=== PATIENT | male | born 1965 | race Hispanic/Latino ===

== ENCOUNTER 2019-05-12 04:11 | Emergency (ER) | payer SELFPAY ==
[2019-05-12 04:49] LABS: Absolute Lymphocytes (CBC) 2.2 K/uL (0.7-4.9); Basophils % 0.7 % (0-1.3); Hematocrit 43.2 % (39.6-49.0); Lymphocytes % 37.1 % (15.3-44.8); MPV 9.1 fL (7.6-11.3)
[2019-05-12 05:01] LABS: ALT/SGPT 69 U/L (12-78); AST/SGOT 27 U/L (15-37); Albumin 3.7 g/dL (3.4-5.0); Alkaline Phosphatase 74 U/L (45-117); BUN Blood Urea Nitrogen 15 mg/dL (7-18); Bicarbonate 27 mmol/L (21-32); Bilirubin Direct 0.1 mg/dL (0-0.2); Bilirubin Total 0.3 mg/dL (0.2-1.0); CKMB Creatine Kinase MB 1.4 ng/mL (0.3-3.6); Creatine Phosphokinase 103 U/L (39-308); Glucose Level 168 mg/dL (74-106); Lipase 76 U/L (73-393); Magnesium 1.8 mg/dL (1.8-2.4); NT PRO-BNP 42 pg/mL (<125); Potassium 3.1 mmol/L (3.5-5.1); Protein, Total 7.6 g/dL (6.4-8.2); Sodium Level 139 mmol/L (136-145); Troponin (Emerg Dept Use Only) < 0.02 ng/mL (0.0-0.045)
[2019-05-12 05:08] LABS: Protime INR 1.02
--- NOTE | 2019-05-12 06:35 | EDPHYS ---
Physician Documentation [facility] Name: Douglas Alvarez Age: 53 yrs Sex: Male : 1965 Arrival Date: 05/12/2019 Time: 04:12 Bed 20 Private MD: ED Physician Albert Emery HPI: 05/11 04:56 This 53 yrs old Male presents to ER via Unassigned with complaints of tw4 Breathing Difficulty. 04:56 The patient has shortness of breath at rest. Onset: The symptoms/episode began/occurred tw4 today. Duration: The symptoms are continuous, and are unchanged since they started. The patient's shortness of breath has no apparent modifying factors. Associated signs and symptoms: The patient has no apparent associated signs or symptoms. Severity of symptoms: At their worst the symptoms were moderate in the emergency department the symptoms are unchanged. The patient has not experienced similar symptoms in the past. Historical: - Allergies: 04:12 No Known Allergies; jb4 - Home Meds: 04:12 None [Active]; jb4 - PMHx: 04:12 None; jb4 - PSHx: 04:12 None; jb4 - Immunization history:: Adult Immunizations up to date. - Social history:: Smoking status: Patient reports the use of cigarette tobacco products, Patient denies any tobacco usage or history of. Patient/guardian denies using alcohol, street drugs. ROS: 04:56 Constitutional: Negative for fever, chills, and weight loss, Eyes: Negative for injury, tw4 pain, redness, and discharge, ENT: Negative for injury, pain, and discharge, Neck: Negative for injury, pain, and swelling, Cardiovascular: Negative for chest pain, palpitations, and edema, Abdomen/GI: Negative for abdominal pain, nausea, vomiting, diarrhea, and constipation, Back: Negative for injury and pain, MS/Extremity: Negative for injury and deformity, Skin: Negative for injury, rash, and discoloration. 04:56 Respiratory: Positive for cough, shortness of breath, Negative for dyspnea on exertion, hemoptysis, orthopnea, pleurisy, sputum production, wheezing. Exam: 04:56 Constitutional: This is a well developed, well nourished patient who is awake, alert, tw4 and in no acute distress. Head/Face: Normocephalic, atraumatic. Chest/axilla: Normal chest wall appearance and motion. Nontender with no deformity. No lesions are appreciated. Cardiovascular: Regular rate and rhythm with a normal S1 and S2. No gallops, murmurs, or rubs. Normal PMI, no JVD. No pulse deficits. Respiratory: Lungs have equal breath sounds bilaterally, clear to auscultation and percussion. No rales, rhonchi or wheezes noted. No increased work of breathing, no retractions or nasal flaring. Abdomen/GI: Soft, non-tender, with normal bowel sounds. No distension or tympany. No guarding or rebound. No evidence of tenderness throughout. Back: No spinal tenderness. No costovertebral tenderness. Full range of motion. MS/ Extremity: Pulses equal, no cyanosis. Neurovascular intact. Full, normal range of motion. Neuro: Awake and alert, GCS 15, oriented to person, place, time, and situation. Cranial nerves II-XII grossly intact. Motor strength 5/5 in all extremities. Sensory grossly intact. Cerebellar exam normal. Normal gait. Vital Signs: 04:12 BP 130 / 93; Pulse 102; Resp 18; Temp 98.5; Pulse Ox 100% on R/A; Weight 99.79 kg (R); jb4 Height 5 ft. 10 in. (177.80 cm); Pain 0/10; 05:45 BP 115 / 90; Pulse 83; Resp 18; Pulse Ox 98% on R/A; jb4 06:19 BP 119 / 86; Pulse 78; Resp 18; Pulse Ox 98% on R/A; Pain 0/10; fu 04:12 Body Mass Index 31.57 (99.79 kg, 177.80 cm) [facility] MDM: 04:30 Patient medically screened. 05/11 04:31 Order name: Blood Culture Adult (2) 05/11 04:31 Order name: BMP; Complete Time: 06:11 05/11 06:11 Interpretation: Normal except: K 3.1; GLUC 168; GFR 86. 05/11 04:31 Order name: CBC with Diff; Complete Time: 06:11 05/11 06:11 Interpretation: Within normal limits. 05/11 04:31 Order name: Ckmb; Complete Time: 06:11 05/11 06:11 Interpretation: Within normal limits: CKMB 1.4. 05/11 04:31 Order name: CPK; Complete Time: 06:11 05/11 06:12 Interpretation: Within normal limits: CPK 103. 05/11 04:31 Order name: D-Dimer; Complete Time: 06:11 05/11 06:12 Interpretation: Within normal limits: D-DIMER 327. 05/11 04:31 Order name: XRAY CXR (1 view) 05/11 04:31 Order name: Hepatic Function; Complete Time: 06:11 05/11 06:11 Interpretation: Normal except: GLOB 3.9; A/G 0.9. 05/11 04:31 Order name: Lipase; Complete Time: 06:11 05/11 06:12 Interpretation: Within normal limits: LIP 76. 05/11 04:31 Order name: Magnesium; Complete Time: 06:11 05/11 06:12 Interpretation: Within normal limits: MG 1.8. 05/11 04:31 Order name: NT PRO-BNP; Complete Time: 06:11 05/11 06:12 Interpretation: Within normal limits: NT PRO-BNP 42. 05/11 04:31 Order name: PT-INR; Complete Time: 06:11 05/11 06:12 Interpretation: Within normal limits: PT 12.0. 05/11 04:31 Order name: Ptt, Activated; Complete Time: 06:11 05/11 06:12 Interpretation: Within normal limits: PTT 29.1. 05/11 04:31 Order name: Troponin (emerg Dept Use Only); Complete Time: 06:11 05/11 06:12 Interpretation: Within normal limits: TROPED < 0.02. 05/11 04:31 Order name: EKG; Complete Time: 04:32 05/11 04:31 Order name: Cardiac monitoring; Complete Time: 05:02 05/11 04:31 Order name: EKG - Nurse/Tech; Complete Time: 05:03 05/11 04:31 Order name: IV Saline Lock; Complete Time: 05:03 05/11 04:31 Order name: Labs collected and sent; Complete Time: 05:03 4 05/11 04:31 Order name: O2 Per Protocol; Complete Time: 05:4 05/11 04:31 Order name: O2 Sat Monitoring; Complete Time: : EC:03 Rate is 90 beats/min. Rhythm is regular. QRS [place] is Normal. HI interval is normal. QRS tw4 interval is normal. QT interval is normal. No Q waves. T waves are Flattened in lead aVL. No ST changes noted. Clinical impression: NSR w/ Non-specific ST/T Changes. Interpreted by me. Administered Medications: No medications were administered Disposition: 05/12/19 06:34 Discharged to Home. Impression: Dyspnea, Cough. - Condition is Stable. - Discharge Instructions: Shortness of Breath, Cough, Adult. - Prescriptions for Tessalon Perles 100 mg Oral Capsule - take 1 capsule by ORAL route every 8 hours As needed; 15 capsule. - Medication Reconciliation Form, Thank You Letter, Antibiotic Education, Prescription Opioid Use form. - Follow up: Private Physician; When: Upon discharge from the Emergency Department; Reason: Recheck today's complaints, Continuance of care, Re-evaluation by your physician. - Problem is new. - Symptoms have improved. Signatures: Dispatcher [employer] EDEstelle Hathaway RN RN Maikel Ledesma RN RN jb4 Albert Emery MD MD tw4 Corrections: (The following items were deleted from the chart) 06:55 06:34 05/12/2019 06:34 Discharged to Home. Impression: Dyspnea; Cough. Condition is bb Stable. Forms are Medication Reconciliation Form, Thank You Letter, Antibiotic Education, Prescription Opioid Use. Follow up: Private Physician; When: Upon discharge from the Emergency Department; Reason: Recheck today's complaints, Continuance of care, Re-evaluation by your physician. Problem is new. Symptoms have improved. tw4
--- NOTE | 2019-05-12 06:35 | ER ---
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 There were a lot of us there and a lot of the guys were coughing and not feeling well. EMS states: PT got back in town 1 week ago from [place]. He is reporting cough, sore throat, and shortness of breath. The cough and soar throat has been going on since he got back, the SOB started tonight. 04:12 Coronavirus screen: Surgical mask placed on patient. Patient moved to private room, jb4 placed in contact and droplet isolation with eye protection until further assessment. Patient reports a cough. Patient reports shortness of breath or difficulty breathing. Patient denies measured and/or subjective temperature greater than 100.4F. Patient reports travel on a cruise ship or to a country the [facility] currently lists as an affected area. Patient denies contact with known and/or suspected case of COVID-19. Ebola Screen: No symptoms or risks identified at this time. Initial Sepsis Screen: Does the patient meet any 2 criteria? HR > 90 bpm. Yes Does the patient have a suspected source of infection? No. Patient's initial sepsis screen is negative. Risk Assessment: Do you want to hurt yourself or someone else? Patient reports no desire to harm self or others. 04:12 Method Of Arrival: EMS: [facility] jb4 04:12 Acuity: FERNY 3 jb4 Triage Assessment: 04:12 Respiratory: Onset: The symptoms/episode began/occurred this morning, the patient has jb4 mild shortness of breath. Historical: - Allergies: 04:12 No Known Allergies; jb4 - Home Meds: 04:12 None [Active]; jb4 - PMHx: 04:12 None; jb4 - PSHx: 04:12 None; jb4 - Immunization history:: Adult Immunizations up to date. - Social history:: Smoking status: Patient reports the use of cigarette tobacco products, Patient denies any tobacco usage or history of. Patient/guardian denies using alcohol, street drugs. Screenin:12 Abuse screen: Denies threats or abuse. Nutritional screening: No deficits noted. jb4 Tuberculosis screening: No symptoms or risk factors identified. Fall Risk None identified. Assessment: 04:12 General: Appears in no apparent distress. uncomfortable, Behavior is calm, cooperative, jb4 appropriate for age. Pain: Denies pain. Neuro: Level of Consciousness is awake, alert, obeys commands, Oriented to person, place, time, situation. Cardiovascular: Patient's skin is warm and dry. Rhythm is sinus rhythm. Respiratory: Reports shortness of breath at rest Airway is patent Respiratory effort is even, unlabored, Breath sounds are clear. GI: No signs and/or symptoms were reported involving the gastrointestinal system. : No signs and/or symptoms were reported regarding the genitourinary system. EENT: No signs and/or symptoms were reported regarding the EENT system. Derm: Skin is intact, Skin is pink, warm \T\ dry. Musculoskeletal: Circulation, motion, and sensation intact. Range of motion: intact in all extremities. 05:30 Reassessment: Patient appears in no apparent distress at this time. Patient and/or jb4 family updated on plan of care and expected duration. Pain level reassessed. Patient is alert, oriented x 3, equal unlabored respirations, skin warm/dry/pink. 06:23 Reassessment: Patient appears in no apparent distress at this time. Patient and/or fu family updated on plan of care and expected duration. Pain level reassessed. Patient is alert, oriented x 3, equal unlabored respirations, skin warm/dry/pink. Patient cleared from droplet precautions as per Dr. Emery. 06:55 Reassessment: Patient appears in no apparent distress at this time. Patient and/or jb4 family updated on plan of care and expected duration. Pain level reassessed. Patient is alert, oriented x 3, equal unlabored respirations, skin warm/dry/pink. PT verbalized understanding of d/c and follow up instructions, denies questions or concerns. Ambulated out of Ed with steady gait. Vital Signs: 04:12 BP 130 / 93; Pulse 102; Resp 18; Temp 98.5; Pulse Ox 100% on R/A; Weight 99.79 kg (R); jb4 Height 5 ft. 10 in. (177.80 cm); Pain 0/10; 05:45 BP 115 / 90; Pulse 83; Resp 18; Pulse Ox 98% on R/A; jb4 06:19 BP 119 / 86; Pulse 78; Resp 18; Pulse Ox 98% on R/A; Pain 0/10; fu 04:12 Body Mass Index 31.57 (99.79 kg, 177.80 cm) jb4 ED Course: 04:12 Patient arrived in ED. cl3 04:12 Arm band placed on right wrist. jb4 04:12 Patient has correct armband on for positive identification. Bed in low position. Call [facility] light in reach. Side rails up X 1. packing machine can feeder on. Pulse ox on. NIBP on. 04:30 Albert Emery MD is Attending Physician. tw4 04:30 Initial lab(s) drawn, by ma, sent to lab. Inserted saline lock: 20 gauge in right [facility] antecubital area, using aseptic technique. Blood collected. 04:40 First set of blood cultures drawn by me. jb4 04:53 Maikel Barnhart, RN is Primary Nurse. jb4 04:55 Second set of blood cultures drawn by ma, EKG done, by ED staff, reviewed by Albert Emery MD. 04:58 Triage completed. jb4 05:16 XRAY CXR (1 view) In Process Unspecified. EDWA 06:55 No provider procedures requiring assistance completed. IV discontinued, intact, jb4 bleeding controlled, No redness/swelling at site. Pressure dressing applied. Administered Medications: No medications were administered Outcome: 06:34 Discharge ordered by . tw4 06:55 Patient left the ED. bb 06:55 Discharged to home ambulatory, with family. jb4 06:55 Condition: stable 06:55 Discharge instructions given to patient, Instructed on discharge instructions, follow up and referral plans. medication usage, Demonstrated understanding of instructions, follow-up care, medications, Prescriptions given X 1. Signatures: Dispatcher [employer] Estelle Olvera RN RN bb Bryson, James, AYDE MESSER jb Valdemar Oconnor RN RN fu Wadley, Terrence, MD MD 4 Nola Kaur cl3
[2019-05-12 07:03] VITALS: TEMP 98.5
[2019-05-12 07:04] VITALS: O2SAT 98
[2019-05-12 07:05] VITALS: BP 119/86
--- NOTE | 2019-05-12 07:08 | RAD REPORT ---
EXAM DESCRIPTION: RAD - Chest Single View - 05/12/2019 5:15 am CLINICAL HISTORY: Cough;SOB COMPARISON: None TECHNIQUE: AP portable chest image was obtained 05/12/2019 5:15 am . FINDINGS: No focal lung process. Interstitial pattern within normal limits for a slightly shallow in spiration. Heart and vasculature are normal. No measurable pleural effusion and no pneumothorax. No a cute bony abnormality seen. No acute aortic findings suspected. IMPRESSION: No acute cardiopulmonary process.
--- NOTE | 2019-05-12 10:59 | EKG ---
Test Date: 2019-05-12 Test Time: 04:44:38 Pitting Machine Operator: PAULINE MEASUREMENT RESULTS: Intervals: Rate: 90 OR: 154 QRSD: 86 QT: 376 QTc: 459 [place]: P: 9 OR: 154 QRS: 46 T: 49 INTERPRETIVE STATEMENTS: Normal sinus rhythm Increased R/S ratio in V1, consider early transition or posterior infarct Abnormal ECG No previous ECG available for comparison Electronically Signed On 05-12-19 10:58:51 CDT by Boaz Holland
== END 2019-05-12 06:55 | disposition home or self-care (01) ==
LOC: ER 04:11
DX: R05 Cough (principal); Z72.0 Tobacco use
CPT/HCPCS: 36415; 71045; 80048; 80076; 82550; 82553; 83690; 83735; 83880; 84484; 85025; 85379; 85610; 85730; 87040; 93005; 99284